=== PATIENT | female | born 1980 | race Caucasian/White ===

== ENCOUNTER 2017-08-11 18:34 | Emergency (ER) | payer OTHER ==
[~2017-08-11] VITALS: Ht 165.1 cm; Wt 104.5 kg
[2017-08-11] MEDS ORDERED: METF500T4 PO (18:40)
[2017-08-11 18:53] LABS: GLUCOSE,POINT OF CARE 313 MG/DL (70-110)
[2017-08-11 19:31] LABS: APPEARANCE,URINE CLOUDY (CLEAR); GLUCOSE, URINE (UA) >=1000 mg/dL (NEGATIVE); KETONES,URINE 15 mg/dL (NEGATIVE); LEUKOCYTE ESTERASE ,URINE NEGATIVE (NEGATIVE); OCCULT BLOOD,URINE NEGATIVE (NEGATIVE); PH,URINE 5.5 (5.0-8.0); PROTEIN,URINE TRACE (NEGATIVE)
[2017-08-11 19:34] LABS: ADD UA MICROSCOPIC YES
[2017-08-11] MEDS ORDERED: LIDOCAINE HCL 1% 10 ML VIAL INJ ONE (19:45)
[2017-08-11 19:46] LABS: RBC,URINE 0-2 /HPF (0-2); SQUAMOUS EPITHELIAL CELL,UR Moderate /LPF (None Seen)
[2017-08-11] MEDS ORDERED: MetFORMIN HCL 500 MG TABLET PO ONE (20:00)
[2017-08-11] MEDS ORDERED: BACITRACIN 0.9 GM PACKET OINTMENT TP ONE (20:00)
[2017-08-11 20:05] VITALS: BP 117/67
[2017-08-11] MEDS ORDERED: OxyCODONE HCL/ACETAMINOPHEN 5-325 MG TABLET PO ONE (20:30)
== END 2017-08-11 20:27 | disposition home or self-care (01) ==
LOC: EMS 18:37
DX: L02.214 Cutaneous abscess of groin (principal); B37.9 Candidiasis, unspecified; E11.9 Type 2 diabetes mellitus without complications; F12.90 Cannabis use, unspecified, uncomplicated
CPT/HCPCS: 10060; 81001; 82962; 84703; 99284; J3490